=== PATIENT | female | born 1945 | race African-American/Black ===

== ENCOUNTER 2016-09-19 14:03 | Day surgery (SDC) | payer MEDICARE, OTHER ==
--- NOTE | ~2016-09-19 | EGD ---
EGD REPORT [facility] [address] [id number] NAME: ROSA ISELA DILLON : [birth year] STATUS : REG [facility]#: [id number] AGE: 71 ADM/REG DATE : 09/19/16 MR#: [id number] REPORT SERV DATE: 09/19/16 DICTATED BY: OTTONIEL HYLTON DATE: 09/19/16 REPORT STATUS : Draft TRANSCRIBED BY: [facility] DATE: 09/19/16 Endoscopy Center Patient Name: Rosa Isela Dillon Date of : 1945 Attending MD: OTTONIEL HYLTON MD Procedure Date No Time: 09/19/2016 Procedure: Colonoscopy Indications: High risk colon CA surveillance: Personal history adenoma with villous component, High risk colon CA surveillance: Personal history multiple (3 or more) adenomas Medicines: Propofol per Anesthesia Complications: No immediate complications. Procedure: Pre-Anesthesia Assessment: - ASA Grade Assessment: III - A patient with severe systemic disease. After I obtained informed consent, the scope was passed under direct vision. Throughout the procedure, the patient's blood pressure, pulse, and oxygen saturations were monitored continuously. The PCF [id number] was introduced through the anus and advanced to the cecum, identified by appendiceal orifice and ileocecal valve. The colonoscopy was performed without difficulty. The patient tolerated the procedure well. The quality of the bowel preparation was adequate. Findings: The perianal and digital rectal examinations were normal. A sessile polyp was found in the cecum. The polyp was 10 mm in size. The polyp was removed with a hot snare. Resection and retrieval were complete. A sessile polyp was found in the descending colon. The polyp was 5 mm in size. The polyp was removed with a cold snare. Resection and retrieval were complete. Multiple small-mouthed diverticula were found in the sigmoid colon, in the descending colon and in the transverse colon. Impression: - One 10 mm polyp in the cecum. Resected and retrieved. - One 5 mm polyp in the descending colon. Resected and retrieved. - Diverticulosis in the sigmoid colon, in the descending colon and in the transverse colon. Recommendation: - Await pathology results. - Patient has a contact number available for EGD REPORT [address] [id number] NAME: ROSA ISELA DILLON : [birth year] STATUS : REG [facility] [place] PAT#: [id number] AGE: 71 ADM/REG DATE : 09/19/16 MR#: [id number] REPORT SERV DATE: 09/19/16 DICTATED BY: OTTONIEL HYLTON DATE: 09/19/16 REPORT STATUS : Draft TRANSCRIBED BY: [employer] [facility] DATE: 09/19/16 emergencies. The signs and symptoms of potential delayed complications were discussed with the patient. Return to normal activities tomorrow. Written discharge instructions were provided to the patient. - High fiber diet indefinitely. - Continue present medications. - Repeat colonoscopy in 3 years for surveillance. Procedure Code(s): --- Professional --- 59814, Colonoscopy, flexible, proximal to splenic flexure; with removal of tumor(s), polyp(s), or other lesion(s) by snare technique Diagnosis Code(s): --- Professional --- D12.4, Benign neoplasm of descending colon D12.0, Benign neoplasm of cecum K57.30, Diverticulosis of large intestine without perforation or abscess without bleeding Z86.010, Personal history of colonic polyps CPT copyright 2013 [employer]. All rights reserved. The codes documented in this report are preliminary and upon batch tester review may be revised to meet current compliance requirements. OTTONIEL HYLTON MD 09/19/2016 3:06 PM This report has been signed electronically. Number of Addenda: 0 Note Initiated On: 09/19/2016 2:27 PM [address] [id number]
[~2016-09-19 14:03] MED LIST: ALLEGRA180 PO; ARANESP25 IV; ASAB PO; CARDU2 PO; COLCRYS0.6 MG PO; IMDUR120 PO; INSNOVR SC; KEPPRA500 PO; L20 PO; LANTUS SC; LYRICA25 PO; MAGOX4 PO; NEOMYCIN OT; NORV10 PO; NOVOLOG SC; PLAVIX PO; POLYMYXIN B OT; PRILO PO; RENVELA800 MG PO; SPIRIVA INH; SPIRIVA RESPIMAT INH; TEG200 PO; TRAZ50 PO; TUMSROLL PO; VITAMIN B-625 MG PO; Z100 PO
== END 2016-09-19 23:59 | disposition home or self-care (01) ==
LOC: DMU 14:03
PROVIDERS: Internal Medicine Gastroenterology
PROC: 0DBN8ZZ Excision of Sigmoid Colon, Via Natural or Artificial Opening Endoscopic (ICD-10-PCS; 2016-09-19)
PROC: 0DBM8ZZ Excision of Descending Colon, Via Natural or Artificial Opening Endoscopic (ICD-10-PCS; 2016-09-19)
PROC: 0DBH8ZZ Excision of Cecum, Via Natural or Artificial Opening Endoscopic (ICD-10-PCS; principal; 2016-09-19 15:30)
DX: Z12.11 Encounter for screening for malignant neoplasm of colon (principal); D12.0 Benign neoplasm of cecum; D12.4 Benign neoplasm of descending colon; K57.30 Diverticulosis of large intestine without perforation or abscess without bleeding; E11.22 Type 2 diabetes mellitus with diabetic chronic kidney disease; I12.0 Hypertensive chronic kidney disease with stage 5 chronic kidney disease or end stage renal disease; N18.6 End stage renal disease; I25.10 Atherosclerotic heart disease of native coronary artery without angina pectoris; J44.9 Chronic obstructive pulmonary disease, unspecified; L40.9 Psoriasis, unspecified; K21.9 Gastro-esophageal reflux disease without esophagitis; K44.9 Diaphragmatic hernia without obstruction or gangrene; R01.1 Cardiac murmur, unspecified; I49.3 Ventricular premature depolarization; R56.9 Unspecified convulsions; I20.8 Other forms of angina pectoris; J45.909 Unspecified asthma, uncomplicated; M19.90 Unspecified osteoarthritis, unspecified site; D50.0 Iron deficiency anemia secondary to blood loss (chronic); Z95.1 Presence of aortocoronary bypass graft; Z90.710 Acquired absence of both cervix and uterus; Z88.5 Allergy status to narcotic agent; Z95.5 Presence of coronary angioplasty implant and graft; Z79.01 Long term (current) use of anticoagulants; Z99.89 Dependence on other enabling machines and devices; Z90.89 Acquired absence of other organs; Z99.81 Dependence on supplemental oxygen; Z86.010 Personal history of colon polyps; Z87.891 Personal history of nicotine dependence; Z88.8 Allergy status to other drugs, medicaments and biological substances; Z88.1 Allergy status to other antibiotic agents; Z79.899 Other long term (current) drug therapy; Z79.82 Long term (current) use of aspirin; Z98.890 Other specified postprocedural states
CPT/HCPCS: 82962; 88305